=== PATIENT | female | born 1955 | race American Indian/Alaskan Native ===

== ENCOUNTER 2018-03-16 11:47 | Emergency (ER) | payer BC, OTHER ==
--- NOTE | 2018-03-16 13:15 | XRay Report ---
CHEST XRAY, 2 VIEWS: History: Shortness of breath. Findings: There is mild cardiomegaly. Pulmonary vessels are within normal limits. The lungs are clear and fully expanded. No infiltrate, pleural effusion or pneumothorax. Normal thoracic cage. IMPRESSION: Mild cardiomegaly. Lungs clear.
[2018-03-16 13:24] LABS: Hemoglobin 13.7 gm/dl (10.1-14.3); Mean Corpuscular HGB Conc 33 % (30-34); Mean Corpuscular Hemoglobin 29 pg (28-32); Mean Corpuscular Volume 88 fl (79-97); Platelet Count 389 K/mm3 (140-440); Red Blood Count 4.78 M/mm3 (3.65-5.03); Red Cell Distribution Width 14.9 % (13.2-15.2)
[2018-03-16 13:36] LABS: BUN/Creatinine Ratio 11; Blood Urea Nitrogen 10 mg/dL (7-17); Hemolysis Index 12
[2018-03-16 14:31] LABS: Basophils % (Manual) 0 % (0.0-1.8); Platelet Estimate Consistent w Auto; RBC Morphology Normal; Total Cells Counted 100
[2018-03-16] MEDS ORDERED: CATAPRES PO ONE (15:13)
[2018-03-16] MEDS ORDERED: TESSALON PERLES PO ONE (15:13)
--- NOTE | 2018-03-16 15:20 | Emergency Department Report ---
ED Shortness of Breath HPI - General Chief Complaint: Dyspnea/Respdistress Stated Complaint: SHORT OF BREATH Time Seen by Provider: 03/16/18 14:58 Source: patient Mode of arrival: Ambulatory Limitations: No Limitations - History of Present Illness Initial Comments: Patient is a 63-year-old female smoker who is presenting with 1 week of cough cold congestion. Patient states cough productive of yellow sputum. Patient denies any fevers chills nausea vomiting diarrhea at this time. Patient does have a mild headache and states that her blood pressures been running high all this week. Patient denies any noncompliance with her blood pressure medicines. Patient states that she hassore throat headache sinus congestion at this time. - Related Data Previous Rx's Medication Instructions Recorded Last Taken Type Aspirin [Aspirin BABY CHEW TAB] 81 mg PO QDAY #30 tab.chew 11/06/14 Unknown Rx Lisinopril [Zestril TAB] 10 mg PO QDAY #30 tablet 11/06/14 Unknown Rx Metoprolol [Lopressor TAB] 12.5 mg PO BID #30 tablet 11/06/14 Unknown Rx Rosuvastatin (Nf) [Crestor] 5 mg PO QHS #30 tablet 11/06/14 Unknown Rx ALBUTEROL Inhaler [ProAir HFA 2 puff IH QID PRN #1 inhalation 03/16/18 Unknown Rx Inhaler] Azithromycin [Zithromax] 250 mg PO DAILY #6 tablet 03/16/18 Unknown Rx predniSONE [Deltasone] 10 mg PO QDAY #5 tab 03/16/18 Unknown Rx Allergies Allergy/AdvReac Type Severity Reaction Status Date / Time No Known Allergies Allergy Unverified 11/04/14 10:07 ED Review of Systems ROS: Stated complaint: SHORT OF BREATH Other details as noted in HPI Comment: All other systems reviewed and negative ED Past Medical Hx - Past Medical History Previous Medical History?: Yes Hx Hypertension: Yes - Surgical History Past Surgical History?: Yes Additional Surgical History: hysterectomy - Social History Smoking Status: Current Every Day Smoker Substance Use Type: Alcohol, Prescribed - Medications Home Medications: Home Medications Medication Instructions Recorded Confirmed Last Taken Type Aspirin [Aspirin BABY CHEW TAB] 81 mg PO QDAY #30 tab.chew 11/06/14 Unknown Rx Lisinopril [Zestril TAB] 10 mg PO QDAY #30 tablet 11/06/14 Unknown Rx Metoprolol [Lopressor TAB] 12.5 mg PO BID #30 tablet 11/06/14 Unknown Rx Rosuvastatin (Nf) [Crestor] 5 mg PO QHS #30 tablet 11/06/14 Unknown Rx ALBUTEROL Inhaler [ProAir HFA 2 puff IH QID PRN #1 inhalation 03/16/18 Unknown Rx Inhaler] Azithromycin [Zithromax] 250 mg PO DAILY #6 tablet 03/16/18 Unknown Rx predniSONE [Deltasone] 10 mg PO QDAY #5 tab 03/16/18 Unknown Rx ED Physical Exam - General Limitations: No Limitations General appearance: alert, in no apparent distress - Head Head exam: Present: atraumatic, normocephalic - Eye Eye exam: Present: normal appearance - ENT ENT exam: Present: mucous membranes moist - Neck Neck exam: Present: normal inspection - Respiratory Respiratory exam: Present: normal lung sounds bilaterally. Absent: respiratory distress, wheezes, rales, rhonchi, stridor - Cardiovascular Cardiovascular Exam: Present: regular rate, normal rhythm. Absent: systolic murmur, diastolic murmur, rubs, gallop - GI/Abdominal GI/Abdominal exam: Present: soft, normal bowel sounds. Absent: distended, tenderness, guarding, rebound - Extremities Exam Extremities exam: Present: normal inspection - Back Exam Back exam: Present: normal inspection - Neurological Exam Neurological exam: Present: alert, oriented X3 - Psychiatric Psychiatric exam: Present: normal affect, normal mood - Skin Skin exam: Present: warm, dry, intact, normal color. Absent: rash ED Course Vital Signs 03/16/18 12:03 Temperature 97.9 F Pulse Rate 89 Respiratory 22 Rate Blood Pressure 192/107 O2 Sat by Pulse 97 Oximetry ED Medical Decision Making - Lab Data Result diagrams: 03/16/18 12:48 03/16/18 12:48 - EKG Data 03/16/18 15:17 EKG shows sinus rhythm with a rate of 76 no axis normal intervals no ST segment elevations there is evidence of LVH, interpretation is 1214 - Radiology Data Chest x-ray shows some mild cardiomegaly without acute lung changes. - Medical Decision Making The patient smokes and the duration of her symptoms start the patient on antibiotics as well as symptomatic relief and the patient be discharged home. Patient was given Catapres for her blood pressure but will have follow-up visit with her primary physician to have blood pressure rechecked in several days to assure that her medication regimen does not have to be changed. Critical care attestation.: If time is entered above; I have spent that time in minutes in the direct care of this critically ill patient, excluding procedure time. ED Disposition Clinical Impression: Acute bronchitis Qualifiers: Bronchitis organism: unspecified organism Qualified Code(s): J20.9 - Acute bronchitis, unspecified Disposition: DC- TO HOME OR SELFCARE Is pt being admited?: No Does the pt Need Aspirin: No Condition: Stable Instructions: Acute Bronchitis (ED) Referrals: PRIMARY CARE, [Primary Care Provider] - 3-5 Days
[2018-03-16 15:23] VITALS: BP 170/108
== END 2018-03-16 15:56 | disposition home or self-care (01) ==
LOC: ED 11:47
DX: J20.9 Acute bronchitis, unspecified (principal); I10 Essential (primary) hypertension; F17.200 Nicotine dependence, unspecified, uncomplicated; Z90.710 Acquired absence of both cervix and uterus
CPT/HCPCS: 36415; 71046; 80048; 84484; 85007; 85025; 93005; 93010; 99284

== ENCOUNTER 2018-11-27 08:41 | Outpatient (CLI) | payer OTHER | END 2018-11-27 08:42 | disposition home or self-care (01) | LOC: PF 08:41 | PROVIDERS: ATTEND Internal Medicine | DX: Z02.71 Encounter for disability determination (principal); R06.02 Shortness of breath; I10 Essential (primary) hypertension; Z90.710 Acquired absence of both cervix and uterus | CPT/HCPCS: 94010 ==